=== PATIENT | female | born 1950 | race Caucasian/White ===

== ENCOUNTER → 2020-04-06 | Outpatient (CLI) | payer MEDICARE, OTHER ==
[~2020-04-06] MED LIST: AMOCLA875 PO; ASPI81CH PO; CETI5 PO; IBUP800 PO; LISHYD2025 PO; LOVA20 PO; METF500 PO; MONT4 PO; OXYACE5T PO; RXOXYACE PO
== END | disposition home or self-care (01) ==
LOC: LAB SHORT 19:22 → LAB 19:22
DX: R30.9 Painful micturition, unspecified (principal)
CPT/HCPCS: 87086